=== PATIENT | male | born 1955 | race Caucasian/White ===

== ENCOUNTER → 2019-09-15 | Outpatient (CLI) | payer SELFPAY ==
[2019-09-15 08:35] LABS: ALBUMIN 4.3 g/dL (3.4-4.8)
[2019-09-15 08:36] LABS: CALCIUM 9.2 mg/dL (8.3-10.5)
[2019-09-15 08:37] LABS: TOTAL PROTEIN 6.6 g/dL (6.2-8.1)
[2019-09-15 08:39] LABS: TOTAL BILIRUBIN 0.8 mg/dL (0.2-1.2)
[2019-09-15 09:16] LABS: HEMATOCRIT 44.8 % (42.0-52.0); HEMOGLOBIN 15.6 g/dL (13.5-18.0); MEAN CELL VOLUME 89 fl (78-100); MEAN CORPUSCULAR HEMOGLOBIN 31 pg (27-31); MEAN CORPUSCULAR HGB CONC 35 g/dL (33-37); MEAN PLATELET VOLUME 9.3 fl (7.4-10.4); PLATELET COUNT 307 K/mm3 (130-400); RED BLOOD COUNT 5.04 M/mm3 (4.20-5.60); WHITE BLOOD COUNT 5.5 K/mm3 (4.8-10.8)
[2019-09-15 09:46] LABS: ERYTHROCYTE SEDIMENTATION RATE 2 mm/hr (0-20); LYMPHOCYTE 17 % (20-51); MONOCYTE 9 % (3-10); NEUTROPHILS 70 % (42-75)
== END ==
LOC: LAB 08:02
PROVIDERS: Internal Medicine
DX: Z00.00 Encounter for general adult medical examination without abnormal findings (principal); Z12.5 Encounter for screening for malignant neoplasm of prostate; Z12.11 Encounter for screening for malignant neoplasm of colon

== ENCOUNTER → 2022-02-11 | Outpatient (CLI) | payer OTHER ==
[2022-02-11 12:05] LABS: BASO # 0.05 K/mm3 (0.02-0.10); EOS # 0.17 K/mm3 (0.04-0.40); EOS % 2.4 % (0.0-4.0); HEMATOCRIT 50.5 % (42.0-52.0); HEMOGLOBIN 17.1 g/dL (13.5-18.0); LYMPH# 1.13 K/mm3 (1.50-4.00); MEAN CELL VOLUME 92 fl (78-100); MEAN CORPUSCULAR HEMOGLOBIN 31 pg (27-31); MEAN CORPUSCULAR HGB CONC 34 g/dL (33-37); MEAN PLATELET VOLUME 9.4 fl (7.4-10.4); MONO # 0.75 K/mm3 (0.20-0.80); NEU # 5.01 K/mm3 (1.40-6.50); PLATELET COUNT 311 K/mm3 (130-400); RED BLOOD COUNT 5.47 M/mm3 (4.20-5.60); RED CELL DISTRIBUTION WIDTH 12.6 % (11.5-14.5); WHITE BLOOD COUNT 7.2 K/mm3 (4.8-10.8)
[2022-02-11 12:11] LABS: ALBUMIN 4.5 g/dL (3.4-4.8); POTASSIUM 4.4 mmol/L (3.5-5.1)
[2022-02-11 12:12] LABS: CALCIUM 9.7 mg/dL (8.3-10.5)
[2022-02-11 12:13] LABS: TOTAL PROTEIN 7.3 g/dL (6.2-8.1)
[2022-02-11 12:15] LABS: TOTAL BILIRUBIN 1.1 mg/dL (0.2-1.2)
== END ==
LOC: LAB 07:07
PROVIDERS: Internal Medicine
DX: Z00.00 Encounter for general adult medical examination without abnormal findings (principal); Z12.5 Encounter for screening for malignant neoplasm of prostate

== ENCOUNTER → 2022-03-05 | Outpatient (CLI) | payer OTHER ==
[2022-03-05 15:38] LABS: ALBUMIN 4.6 g/dL (3.4-4.8)
[2022-03-05 15:41] LABS: TOTAL PROTEIN 7.3 g/dL (6.2-8.1)
[2022-03-05 15:43] LABS: TOTAL BILIRUBIN 1.1 mg/dL (0.2-1.2)
[2022-03-05 15:46] LABS: DIRECT BILIRUBIN 0.4 mg/dL (0.0-0.5)
== END ==
LOC: LAB 15:18
PROVIDERS: Internal Medicine
DX: Z12.11 Encounter for screening for malignant neoplasm of colon (principal); Z00.00 Encounter for general adult medical examination without abnormal findings; R89.0 Abnormal level of enzymes in specimens from other organs, systems and tissues; F52.21 Male erectile disorder

== ENCOUNTER → 2022-03-13 | Outpatient (CLI) | payer OTHER | LOC: RAD 07:40 | DX: R89.0 Abnormal level of enzymes in specimens from other organs, systems and tissues (principal); Z90.49 Acquired absence of other specified parts of digestive tract ==

== ENCOUNTER → 2022-05-13 | Outpatient (CLI) | payer OTHER | LOC: RAD 15:50 | DX: M19.011 Primary osteoarthritis, right shoulder (principal) ==

== ENCOUNTER → 2022-06-05 | Outpatient (CLI) | payer OTHER | LOC: RAD 16:05 | DX: M19.011 Primary osteoarthritis, right shoulder (principal) ==

== ENCOUNTER → 2022-06-19 | Outpatient (CLI) | payer OTHER ==
[2022-06-19 12:44] LABS: BASO # 0.04 K/mm3 (0.02-0.10); EOS # 0.13 K/mm3 (0.04-0.40); EOS % 1.9 % (0.0-4.0); HEMATOCRIT 45.6 % (42.0-52.0); HEMOGLOBIN 16.2 g/dL (13.5-18.0); LYMPH# 1.06 K/mm3 (1.50-4.00); MEAN CELL VOLUME 90 fl (78-100); MEAN CORPUSCULAR HEMOGLOBIN 32 pg (27-31); MEAN CORPUSCULAR HGB CONC 36 g/dL (33-37); MEAN PLATELET VOLUME 8.9 fl (7.4-10.4); MONO # 0.59 K/mm3 (0.20-0.80); NEU # 4.84 K/mm3 (1.40-6.50); PLATELET COUNT 278 K/mm3 (130-400); RED BLOOD COUNT 5.08 M/mm3 (4.20-5.60); RED CELL DISTRIBUTION WIDTH 11.9 % (11.5-14.5); WHITE BLOOD COUNT 6.7 K/mm3 (4.8-10.8)
[2022-06-19 12:47] LABS: ALBUMIN 4.5 g/dL (3.4-4.8)
[2022-06-19 12:48] LABS: CALCIUM 9.2 mg/dL (8.3-10.5)
[2022-06-19 12:49] LABS: TOTAL PROTEIN 6.9 g/dL (6.2-8.1)
[2022-06-19 12:51] LABS: TOTAL BILIRUBIN 0.8 mg/dL (0.2-1.2)
[2022-06-19 12:56] LABS: MAGNESIUM 1.88 mg/dL (1.60-2.60)
[2022-06-19 13:14] LABS: PROTHROMBIN TIME 10.2 SECONDS (9.0-12.0)
[2022-06-19 14:25] LABS: URINE APPEARANCE CLEAR; URINE BILIRUBIN NEGATIVE (NEGATIVE); URINE BLOOD NEGATIVE (NEGATIVE); URINE COLOR YELLOW; URINE GLUCOSE NEGATIVE (NEGATIVE); URINE KETONE NEGATIVE (NEGATIVE); URINE LEUKOCYTE ESTERASE NEGATIVE (NEGATIVE); URINE NITRATE NEGATIVE (NEGATIVE); URINE PROTEIN(semi-quant) TRACE (NEGATIVE); URINE UROBILINOGEN NORMAL (NORMAL); URINE WBC 0-1 /hpf (0-3)
== END ==
LOC: LAB 12:24
PROVIDERS: Internal Medicine
DX: Z01.818 Encounter for other preprocedural examination (principal)

== ENCOUNTER → 2023-05-13 | Outpatient (CLI) | payer MEDICARE, OTHER ==
[2023-05-13 13:06] LABS: BASO # 0.04 K/mm3 (0.02-0.10); EOS # 0.13 K/mm3 (0.04-0.40); LYMPH# 1.02 K/mm3 (1.50-4.00); MEAN CELL VOLUME 90 fl (78-100); MEAN CORPUSCULAR HEMOGLOBIN 31 pg (27-31); MEAN CORPUSCULAR HGB CONC 35 g/dL (33-37); MEAN PLATELET VOLUME 8.8 fl (7.4-10.4); MONO # 0.67 K/mm3 (0.20-0.80); NEU # 4.62 K/mm3 (1.40-6.50); PLATELET COUNT 265 K/mm3 (130-400); RED BLOOD COUNT 5.09 M/mm3 (4.20-5.60); WHITE BLOOD COUNT 6.5 K/mm3 (4.8-10.8)
[2023-05-13 13:11] LABS: ALBUMIN 4.3 g/dL (3.4-4.8)
[2023-05-13 13:12] LABS: CALCIUM 9.3 mg/dL (8.3-10.5)
[2023-05-13 13:13] LABS: TOTAL PROTEIN 6.9 g/dL (6.2-8.1)
[2023-05-13 13:15] LABS: TOTAL BILIRUBIN 0.7 mg/dL (0.2-1.2)
== END ==
LOC: LAB 12:50
PROVIDERS: Internal Medicine
DX: Z00.00 Encounter for general adult medical examination without abnormal findings (principal); Z12.11 Encounter for screening for malignant neoplasm of colon; Z12.5 Encounter for screening for malignant neoplasm of prostate; F52.21 Male erectile disorder; K76.0 Fatty (change of) liver, not elsewhere classified; J30.9 Allergic rhinitis, unspecified; K21.9 Gastro-esophageal reflux disease without esophagitis

== ENCOUNTER → 2024-06-14 | Outpatient (CLI) | payer MEDICARE, OTHER ==
[2024-06-14 07:50] LABS: BASO # 0.03 K/mm3 (0.02-0.10); EOS # 0.19 K/mm3 (0.04-0.40); EOS % 3.2 % (0.0-4.0); HEMATOCRIT 46.2 % (42.0-52.0); HEMOGLOBIN 16.2 g/dL (13.5-18.0); LYMPH# 0.92 K/mm3 (1.50-4.00); MEAN CELL VOLUME 90 fl (78-100); MEAN CORPUSCULAR HEMOGLOBIN 32 pg (27-31); MEAN CORPUSCULAR HGB CONC 35 g/dL (33-37); MEAN PLATELET VOLUME 8.9 fl (7.4-10.4); NEU # 4.13 K/mm3 (1.40-6.50); PLATELET COUNT 248 K/mm3 (130-400); RED BLOOD COUNT 5.11 M/mm3 (4.20-5.60); RED CELL DISTRIBUTION WIDTH 12.1 % (11.5-14.5); WHITE BLOOD COUNT 5.9 K/mm3 (4.8-10.8)
[2024-06-14 08:01] LABS: ALBUMIN 4.3 g/dL (3.4-4.8)
[2024-06-14 08:02] LABS: CALCIUM 9.3 mg/dL (8.3-10.5)
[2024-06-14 08:04] LABS: TOTAL PROTEIN 6.4 g/dL (6.2-8.1)
[2024-06-14 08:05] LABS: TOTAL BILIRUBIN 0.8 mg/dL (0.2-1.2)
[2024-06-14 08:10] LABS: MAGNESIUM 1.99 mg/dL (1.60-2.60)
== END ==
LOC: LAB 07:38
PROVIDERS: Internal Medicine
DX: Z12.5 Encounter for screening for malignant neoplasm of prostate (principal); Z12.11 Encounter for screening for malignant neoplasm of colon; Z11.59 Encounter for screening for other viral diseases; E78.2 Mixed hyperlipidemia